=== PATIENT | male | born 1950 | race Hispanic/Latino ===

== ENCOUNTER → 2019-10-10 | Outpatient (CLI) | payer OTHER ==
[~2019-10-10] MED LIST: AMLO5TAB9 PO; ASPI-1197 PO; ROSU20TA23 PO
== END | disposition home or self-care (01) ==
LOC: RAH 08:04
PROVIDERS: ATTEND Internal Medicine
DX: I07.1 Rheumatic tricuspid insufficiency (principal); I10 Essential (primary) hypertension
CPT/HCPCS: 93306; 93356

== ENCOUNTER → 2024-12-17 | Outpatient (CLI) | payer OTHER ==
[~2024-12-17] MED LIST changes: +AMLO-257 PO; -AMLO5TAB9 PO
--- NOTE | 2024-12-18 05:15 | HMCIMG ---
EXAM: CT Pelvis without IV contrast. CLINICAL HISTORY: Intra-abdominal and pelvic swelling, mass and lump. TECHNIQUE: Thin collimated axial CT images of the pelvis were obtained with sagittal and coronal reformatted images also submitted. CT scan done according to ALARA (As Low As Reasonably Achievable). CONTRAST: None. COMPARISON: None. FINDINGS: There are multiple large lobulated isodense victoria masses extending from the precaval region to the right hemipelvis along the right common and external iliac vessels, the largest measuring about 8.8 x 9.1 x 5.4 cm in the right hemipelvis. There are similar multiple victoria masses in the bilateral inguinal regions, the largest measuring 8.6 x 7 x 6.4 cm in the right inguinal region. There are smaller discrete lymph nodes in the preaortic, para-aortic regions and along the left iliac vessels. The visualized bowel loops are normal in caliber without evidence of obstruction or ileus. The appendix is normal. Minimally distended urinary bladder with a 2 cm diverticulum arising from the left posterolateral wall. Unremarkable reproductive organs. No free fluid. There is no acute osseous abnormality. Moderate degenerative osseous changes. IMPRESSION: 1. Bulky victoria masses involving multiple regions, including the retroperitoneum, pelvis, and bilateral inguinal regions, the largest measuring 8.8 x 9.1 x 5.4 cm in the right hemipelvis, and 8.6 x 7 x 6.4 cm in the right inguinal region. The possibility of primary neoplastic versus metastatic etiologies should be considered. Recommend histopathological correlation and further evaluation with contrast-enhanced CT of the chest, abdomen and pelvis. 2. 2 cm urinary bladder diverticulum arising from the left posterolateral wall. /[place]
== END | disposition home or self-care (01) ==
LOC: RAH 13:49
PROVIDERS: ATTEND Surgery
DX: N32.3 Diverticulum of bladder (principal); R19.09 Other intra-abdominal and pelvic swelling, mass and lump
CPT/HCPCS: 72192